=== PATIENT | female | born 1995 | race African-American/Black ===

== ENCOUNTER 2018-06-15 10:40 | Emergency (ER) | payer MEDICAID ==
[~2018-06-15] VITALS: Ht 165.1 cm; Wt 96.0 kg
[2018-06-15 10:44] VITALS: BP 136/70
== END 2018-06-15 13:00 | disposition left against medical advice (07) ==
LOC: ER 12:49
DX: Z53.21 Procedure and treatment not carried out due to patient leaving prior to being seen by health care provider (principal); J45.909 Unspecified asthma, uncomplicated